=== PATIENT | male | born 1950 | race Caucasian/White ===

== ENCOUNTER 2019-10-28 08:17 | Day surgery (SDC) | payer MEDICARE ==
[2019-10-28] VITALS (8 sets, daily range): BP systolic 106–173; BP diastolic 87–133
[~2019-10-28] VITALS: Ht 175 cm; Wt 79.0 kg
[2019-10-28] MEDS ORDERED: NS IV 1000 ML 1,000 ML ONE (09:26)
[2019-10-28] MEDS ORDERED: LIDOCAINE 2% VISCOUS 15 ML UDC ONE (09:26)
[2019-10-28] MEDS ORDERED: MIDAZOLAM 5 MG/5 ML (VERSED) VIAL IV ONE ×2 (09:30→10:00)
[2019-10-28] MEDS ORDERED: fentaNYL INJECTION 100 MCG/2 ML AMP IV ONE ×2 (09:30→10:00)
[2019-10-28] MEDS ORDERED: LIDOCAINE 2% VISCOUS 15 ML UDC PO ONE ×2 (09:30→10:00)
[2019-10-28] MEDS ORDERED: NS IV 1000 ML 1,000 ML IV SCH (09:30)
[2019-10-28 09:58] LABS: HEMOGLOBIN 14.5 G/DL (13.3-17.7); MEAN PLATELET VOLUME 9.9 FL (7.4-10.4); RED CELL DISTRIBUTION WIDTH 13.5 % (10.0-14.5); WHITE BLOOD COUNT 6.3 10^3/uL (4.3-11.0)
[2019-10-28 09:59] LABS: BILIRUBIN,URINE NEGATIVE (NEGATIVE); CLARITY,URINE CLEAR; COLOR,URINE YELLOW; GLUCOSE, URINE (UA) NEGATIVE (NEGATIVE); KETONES,URINE NEGATIVE (NEGATIVE); LEUKOCYTE ESTERASE ,URINE NEGATIVE (NEGATIVE); NITRITE,URINE NEGATIVE (NEGATIVE); PH,URINE 6.5 (5-9); PROTEIN,URINE NEGATIVE (NEGATIVE)
--- NOTE | 2019-10-28 10:03 | Diagnostic Imaging Report ---
INDICATION: Preop for cardioversion, atrial fibrillation. TECHNIQUE/COMPARISON: A frontal chest was obtained at 9:56 AM with no prior study for comparison. FINDINGS: The heart and mediastinal silhouette are normal in appearance. The lungs appear clear. There is no pneumothorax or pleural fluid. IMPRESSION: No acute process in the chest. Dictated by: Dictated on workstation # [id number]
[2019-10-28] MEDS ORDERED: OMEP-280 PO (10:11)
[2019-10-28] MEDS ORDERED: APIX5TAB PO (10:11)
[2019-10-28 10:14] LABS: PROTHROMBIN TIME PATIENT 13.9 SEC (12.2-14.7)
[2019-10-28 10:16] LABS: BACTERIA,URINE TRACE /HPF; SQUAMOUS EPITHELIAL CELL,UR 0-2 /HPF; WBC,URINE 0-2 /HPF
[2019-10-28 10:26] LABS: ALANINE AMINOTRANSFERASE 18 U/L (0-55); ALBUMIN 4.4 GM/DL (3.2-4.5); ALKALINE PHOSPHATASE 58 U/L (40-136); BILIRUBIN,TOTAL 0.7 MG/DL (0.1-1.0); BUN/CREATININE RATIO 18; CALCIUM 9.9 MG/DL (8.5-10.1); CARBON DIOXIDE 27 MMOL/L (21-32); CHLORIDE 105 MMOL/L (98-107); CHOLESTEROL 234 MG/DL (< 200); CREATININE SERUM 0.97 MG/DL (0.60-1.30); GFR ESTIMATED > 60; GLUCOSE 97 MG/DL (70-105); HDL CHOLESTEROL 52 MG/DL (40-60); POTASSIUM 4.2 MMOL/L (3.6-5.0); SODIUM 139 MMOL/L (135-145); TOTAL PROTEIN 7.2 GM/DL (6.4-8.2); TRIGLYCERIDES 101 MG/DL (<150); VLDL CHOLESTEROL 20 MG/DL (5-40)
--- NOTE | 2019-10-28 10:30 | NUR ---
SPOKE WITH THE PT (HE HAD HIS MED BOTTLES) TO COMPLETE THE MED REC. THE PT HAD A BOTTLE OF LISINOPRIL 20MG- 1 TAB DAILY FILLED ON 09-14-2019 #30- WHEN I ASKED ABOUT THIS MEDICATION HE IMPLIED THAT THIS WAS THE SAME MED THAT IS IN THE OTHER STOCK MED BOTTLE, HE WAS MENTIONING THAT THEY ARE BOTH PINK TABLETS.HE HAD A BOTTLE OF ELIQUIS WITH HIM AND UPON FURTHER INVESTIGATION HE THOUGHT WHEN HE PICKED UP ELIQUIS ON 09-24-2019 PT THOUGHT HE WAS TO STOP TAKING THE LISINOPRIL. HIS WAS COMMENTING ON HIS HIGH BP LATELY AND AGREES THAT THIS IS PROBABLY WHAT HAPPENED. FOR THIS REASON I LEFT THE LISINOPRIL OFF THE MED REC- BUT PT DOES HAVE IT WITH HIM. THE FOLLOWING ARE FILL DATES: 09-14-2019 DILTIAZEM ER 180MG #30/30DS (PT SAYS HE HAS BEEN OUT FOR A COUPLE DAYS- I DID DOCUMENT THE PAST DUE FILL DATE IN THE MED REC) 09-24-2019 ELIQUIS 5MG #60/30DS PT DENIES TAKING ANY OTC MEDS
[2019-10-28] MEDS ORDERED: DILT180C85 PO (10:39)
[2019-10-28] MEDS ORDERED: fentaNYL INJECTION 100 MCG/2 ML AMP ONE (10:48)
[2019-10-28] MEDS ORDERED: proPOfol 200 MG/20 ML (DIPRIVAN) VIAL IV ONE (10:49)
[2019-10-28] MEDS ORDERED: MIDAZOLAM 5 MG/5 ML (VERSED) VIAL ONE (10:49)
[2019-10-28] MEDS ORDERED: AMIODARONE (OMNICELL DRIP KIT) 150 MG/3 ML IV ONE (11:29)
--- NOTE | 2019-10-28 11:40 | Cardiac Procedure Note-CS/ASA ---
Pre-Procedure Note Pre-Op Procedure Note H&P Reviewed The H&P was reviewed, patient examined and no changes noted. Date H&P Reviewed: Oct 28, 2019 Time H&P Reviewed: 11:40 Conscious Sedation Pre-Proced Time 11:40 ASA Score 3 For ASA 3 and 4: Consider anesthesia and medical clearance. Also, for patients with a history of failed moderate sedation consider anesthesia. Airway Lungs Heart ASA score ASA 1: a normal healthy patient ASA 2: a patient with a mild systemic disease (mid diabetes, controlled hypertension, obesity x ASA 3: a patient with a severe systemic disease that limits activity (angina, COPD, prior Myocardial infarction) ASA 4: a patient with an incapacitating disease that is a constant threat to life (CHF, renal failure) ASA 5: a moribund patient not expected to survive 24 hrs. (ruptured aneurysm) ASA 6: a declared brain- patient whose organs are being harvested. For emergent operations, add the letter E after the classification Mallampati Classification Grade 3 Sedation Plan Analgesia, Amnesia, Plan communicated to team members, Discussed options with patient/fam, Discussed risks with patient/fam The patient is an appropriate candidate to undergo the planned procedure, sedation, and anesthesia. The patient immediately re-assessed prior to indication. KERRI JACKSON MD Oct 28, 2019 11:40
--- NOTE | 2019-10-28 11:41 | Cardioversion ---
Cardioversion PROCEDURE PHYSICIAN: Kerri Farrell DATE OF PROCEDURE: 10/28/19 DIRECT EXTERNAL ELECTRICAL CARDIOVERSION: Indications: Atrial Fibrillation with rapid ventricular rate Preoperative diagnoses: Atrial Fibrillation with rapid ventricular rate Postoperative diagnosis: Sinus rhythm, Successful Electrical Cardioversion Anesthesia: By Anesthesia services Complications: None Specimen: None Contrast: 0 Flouroscopy: none Procedure Details: The patient was brought the labor relations supervisor after informed consent was taken, all the risks and complications were explained including the risk of stroke. Electrical cardioversion was carried out with anesthesia support with propofol. 200 joules of synchronized shock was delivered through external patches which promptly restored sinus rhythm. The patient tolerated the procedure well. Conclusions: successful electrical cardioversion with no complication Final Diagnosis: paroxysmal atrial fibrillation Hypertension Palpitations KERRI FARRELL MD Oct 28, 2019 11:41
[2019-10-28] MEDS ORDERED: AMIO200T4 PO (11:42)
[2019-10-28] MEDS ORDERED: AMIODARONE 200 MG (CORDARONE) TAB PO SCH (11:45)
[2019-10-28] MEDS ORDERED: APIXABAN 5 MG (ELIQUIS) TABLET PO ONE (11:45)
--- NOTE | 2019-10-28 13:53 | Anesthesia-General Post-Op ---
MAC Patient Condition Mental Status/LOC: Same as Preop Cardiovascular: Satisfactory Nausea/Vomiting: Absent Respiratory: Satisfactory Pain: Controlled Complications: Absent Post Op Complications Complications None Follow Up Care/Instructions Patient Instructions None needed. Anesthesiology Discharge Order Discharge Order Patient is doing well, no complaints, stable vital signs, no apparent adverse anesthesia problems. No complications reported per nursing. CJ WAGNER CRNA Oct 28, 2019 13:53
== END 2019-10-28 12:48 | disposition home or self-care (01) ==
LOC: CATH 08:17
PROVIDERS: ATTEND Internal Medicine Cardiovascular Disease
DX: I48.19 Other persistent atrial fibrillation (principal); I11.9 Hypertensive heart disease without heart failure; N28.9 Disorder of kidney and ureter, unspecified; Z79.01 Long term (current) use of anticoagulants; Z79.899 Other long term (current) drug therapy
CPT/HCPCS: 36415; 71045; 80053; 80061; 81000; 85027; 85610; 85730; 87081; 92960; 93005; 93312; 93320; 93325

== ENCOUNTER 2019-11-12 11:29 | Day surgery (SDC) | payer MEDICARE ==
[~2019-11-12] VITALS: Ht 175 cm; Wt 80.0 kg
[2019-11-12] VITALS (17 sets, daily range): BP systolic 127–182; BP diastolic 63–105
[~2019-11-12 11:29] MED LIST: AMIO200T4 PO; APIX5TAB PO; DILT180C85 PO; NS IV 1000 ML 1,000 ML ONE; OMEP20CA18 PO
[2019-11-12] MEDS ORDERED: NS IV 1000 ML 1,000 ML IV ONE (11:31)
[2019-11-12] MEDS ORDERED: MIDAZOLAM 5 MG/5 ML (VERSED) VIAL IV ONE (11:45)
[2019-11-12] MEDS ORDERED: MIDAZOLAM 2 MG/2 ML (VERSED) VIAL ONE ×2 (14:59→15:16)
[2019-11-12] MEDS ORDERED: proPOfol 200 MG/20 ML (DIPRIVAN) VIAL IV ONE ×2 (14:59→15:16)
[2019-11-12] MEDS ORDERED: NS IV 1000 ML 1,000 ML ONE (15:15)
--- NOTE | 2019-11-12 16:22 | NUR ---
RECEIVED FROM [facility]A CARDIOVERSION, ALERT AND ORIENTED, DENIES PAIN OR SOB, IV SITE WITHOUT REDNESS OR SWELLING, FAMILY AT BEDSIDE, CALL LIGHT WITHIN REACH, HEART RATE 64
--- NOTE | 2019-11-12 16:25 | Cardioversion ---
Cardioversion PROCEDURE PHYSICIAN: Dionne Hart MD DATE OF PROCEDURE: 11/12/19 DIRECT EXTERNAL ELECTRICAL CARDIOVERSION: Indications: Persistent atrial fibrillation. Preoperative diagnoses: Persistent atrial fibrillation. Postoperative diagnosis: Sinus rhythm, Successful Electrical Cardioversion History: This is a 69-year-old gentleman with persistent atrial fibrillation. The patient had transesophageal echocardiogram assisted cardioversion on 10/28/2019. Transesophageal echocardiogram showed no evidence of left atrial left atrial appendage thrombus. Patient was started on Eliquis and has been on uninterrupted Eliquis since the previous cardioversion attempt. Unfortunately the patient went back into atrial fibrillation. He was started on amiodarone. Anesthesia: By Anesthesia services Complications: None Specimen: None Contrast: 0 Flouroscopy: none Procedure Details: The patient was brought the cathode ray tube assembler after informed consent was taken, all the risks and complications were explained including the risk of stroke. Electrical cardioversion was carried out with anesthesia support with propofol. 200 joules of synchronized shock was delivered through external patches which promptly restored sinus rhythm. The patient tolerated the procedure well. Conclusions: 1.Successful Cardioversion. 2.Continue oral anticoagulation and rate controlling agent. 3.Follow up in office in 4-6 weeks. Dionne Hart MD, [facility] Cardiac Electrophysiology Isaac HART MD Nov 12, 2019 16:25
--- NOTE | 2019-11-12 16:43 | Anesthesia-General Post-Op ---
MAC Patient Condition Mental Status/LOC: Same as Preop Cardiovascular: Satisfactory Nausea/Vomiting: Absent Respiratory: Satisfactory Pain: Controlled Complications: Absent Post Op Complications Complications None Follow Up Care/Instructions Patient Instructions None needed. Anesthesiology Discharge Order Discharge Order Patient was seen after the procedure and he was doing well, no complaints, stable vital signs, no apparent adverse anesthesia problems. JOSSY MOTT DO Nov 12, 2019 16:43
--- NOTE | 2019-11-12 17:55 | NUR ---
bp 182/103, pulse 69, dr rogers notified of bp and orders given
[2019-11-12] MEDS ORDERED: amLODIPine 5 MG (NORVASC) TAB ONE (18:13)
[2019-11-12] MEDS ORDERED: amLODIPine 5 MG (NORVASC) TAB PO ONE (18:15)
--- NOTE | 2019-11-12 18:15 | NUR ---
NORVASC 5MG GIVEN PO INSTRUCTED
[2019-11-12] MEDS ORDERED: AMLO5TAB4 PO (18:16)
--- NOTE | 2019-11-12 18:30 | NUR ---
PRESCRIPTION FOR NORVASC 5MG CALLED TO [facility] IN [place]
--- NOTE | 2019-11-12 19:30 | NUR ---
BP 152/84, DISMISSED P[ER AMBULATORY, DENIES PAIN OR SOB, AT BEDSIDE
== END 2019-11-12 19:30 | disposition home or self-care (01) ==
LOC: CATH 11:29 → CSD 16:56 → CATH 19:30
PROVIDERS: ATTEND Internal Medicine Interventional Cardiology
DX: I48.19 Other persistent atrial fibrillation (principal); I11.9 Hypertensive heart disease without heart failure; R13.10 Dysphagia, unspecified; Z79.899 Other long term (current) drug therapy; Z79.01 Long term (current) use of anticoagulants
CPT/HCPCS: 92960; 93005

== ENCOUNTER 2019-12-10 06:53 | Outpatient (RCR) | payer MEDICARE, OTHER ==
[~2019-12-10] VITALS: Ht 175 cm; Wt 80.0 kg
[~2019-12-10 06:53] MED LIST changes: +AMLO5TAB4 PO; -NS IV 1000 ML 1,000 ML ONE
[2019-12-10] MEDS ORDERED: CATHETER FLUSH 10 ML SYR IV PRN (07:00)
[2019-12-10] MEDS ORDERED: REGADENOSON 0.4 MG/5 ML SYR (LEXISCAN) IV ONE ×2 (07:15→08:20)
[2019-12-10 08:32] VITALS: BP 154/88
--- NOTE | 2019-12-10 12:34 | Cardiology Stress Test Report ---
Stress Test Report Type of NM Stress Test: Test Type: LEXISCAN 0.4MG/5ML Date of Procedure/Referring: Date of Procedure: Dec 10, 2019 PCP Isaac Hart MD Admitting Physician No,Local Physician Indications: Persistent atrial fibrillation Baseline Heart Rate: 54 Baseline Blood Pressure: Blood Pressure Systolic: 154 Blood Pressure Diastolic: 88 Baseline EKG: Baseline EKG: sinus rhythm Summary & Conclusion: Summary: The patient was brought to the stress lab after informed consent was taken. Stress test was performed according to the Lexiscan protocol. 0.4 mg of IV Lexiscan was given. Low-grade exercise was performed. Baseline EKG showed sinus rhythm at 54 BPM. Blood pressure 143/89. Maximum heart rate 74 bpm and blood pressure 165/99 mmHg. Patient did not have any chest pain, arrhythmias or ST segment changes during the stress test. 10.99 mCi of Myoview were given for rest imaging and 32.3 mCi of Myoview given for stress imaging. Transient ischemic dilatation score 0.8 , EF 59 percent. Normal wall motion. Normal myocardial perfusion imaging during rest and stress. Conclusion: Pharmacological stress test was negative for ischemia. Normal LV function with no wall motion abnormalities. Normal myocardial perfusion imaging during rest and stress. Isaac HART MD Dec 10, 2019 12:34
== END 2020-03-09 | disposition home or self-care (01) ==
LOC: CARD 06:53
PROVIDERS: ATTEND Internal Medicine Interventional Cardiology
DX: I48.19 Other persistent atrial fibrillation (principal); I10 Essential (primary) hypertension
CPT/HCPCS: 78452; 93017; A9502

== ENCOUNTER 2020-02-05 12:35 | Outpatient (CLI) | payer MEDICARE, OTHER | END 2020-02-05 13:30 | disposition home or self-care (01) | LOC: SLEEP 12:35 | PROVIDERS: ATTEND Internal Medicine Interventional Cardiology | DX: G47.33 Obstructive sleep apnea (adult) (pediatric) (principal); I48.19 Other persistent atrial fibrillation; I11.9 Hypertensive heart disease without heart failure; Z87.448 Personal history of other diseases of urinary system; Z87.19 Personal history of other diseases of the digestive system ==

== ENCOUNTER 2020-12-12 05:41 | Outpatient (RCR) | payer MEDICARE ==
[~2020-12-12 05:41] MED LIST changes: -AMIO200T4 PO; +AMIO200T6 PO
== END 2021-03-12 | disposition home or self-care (01) ==
LOC: PREOP 05:41 → EDSTATUS 12:00
PROVIDERS: ATTEND Surgery
DX: Z01.818 Encounter for other preprocedural examination (principal)

== ENCOUNTER 2022-04-27 07:03 | Day surgery (SDC) | payer MEDICARE, OTHER ==
[~2022-04-27] VITALS: Ht 175.3 cm; Wt 80.4 kg
[2022-04-27] VITALS (7 sets, daily range): BP systolic 133–157; BP diastolic 82–110
[~2022-04-27 07:03] MED LIST changes: -AMIO200T6 PO; +AMIO200T65 PO
[2022-04-27] MEDS ORDERED: NS IV 1000 ML 1,000 ML IV SCH (07:15)
[2022-04-27] MEDS ORDERED: NS IV 1000 ML 1,000 ML ONE (07:16)
[2022-04-27 07:45] LABS: HEMATOCRIT 43 % (40-54); HEMOGLOBIN 14.4 g/dL (13.3-17.7); MEAN CORPUSCULAR HEMOGLOBIN 31 pg (25-34); MEAN CORPUSCULAR HGB CONC 34 g/dL (32-36); MEAN CORPUSCULAR VOLUME 91 fL (80-99); PLATELET COUNT 260 10^3/uL (130-400); WHITE BLOOD COUNT 7.3 10^3/uL (4.3-11.0)
[2022-04-27 07:57] LABS: INR 1.1 (0.8-1.4); PROTHROMBIN TIME PATIENT 14.4 SEC (12.2-14.7)
[2022-04-27] MEDS ORDERED: FLEC50TA PO (07:59)
[2022-04-27] MEDS ORDERED: proPOfol 200 MG/20 ML (DIPRIVAN) VIAL IV ONE (08:00)
[2022-04-27 08:07] LABS: ALBUMIN 4.2 GM/DL (3.2-4.5); BILIRUBIN,TOTAL 0.7 MG/DL (0.1-1.0); CALCIUM 9.6 MG/DL (8.5-10.1); CREATININE SERUM 1.1 MG/DL (0.60-1.30); POTASSIUM 3.9 MMOL/L (3.6-5.0); TOTAL PROTEIN 6.9 GM/DL (6.4-8.2)
--- NOTE | 2022-04-27 08:09 | Diagnostic Imaging Report ---
INDICATION: Atrial fibrillation. TECHNIQUE: Single view chest 7:18 AM. CORRELATION STUDY: 10/28/2019 FINDINGS: The heart size, mediastinal configuration and pulmonary vascularity are within normal limits. The lungs are clear with no consolidating infiltrate. Mild elevated right diaphragm. There is no significant effusion or pneumothorax. IMPRESSION: 1. Negative appearing single view chest. Dictated by: Dictated on workstation # [id number]
--- NOTE | 2022-04-27 08:55 | Cardiac Procedure Note-CS/ASA ---
Pre-Procedure Note Pre-Op Procedure Note Date of Available H&P: Apr 26, 2022 Date H&P Reviewed: Apr 27, 2022 Time H&P Reviewed: 08:54 History & Physical: H&P Reviewed, Patient Examed, No changes noted Pre-Operative Diagnosis: A flutter Conscious Sedation Pre-Proced Time 08:55 ASA Score 3 For ASA 3 and 4: Consider anesthesia and medical clearance. Also, for patients with a history of failed moderate sedation consider anesthesia. Airway Lungs Heart ASA score ASA 1: a normal healthy patient ASA 2: a patient with a mild systemic disease (mid diabetes, controlled hypertension, obesity x ASA 3: a patient with a severe systemic disease that limits activity (angina, COPD, prior Myocardial infarction) ASA 4: a patient with an incapacitating disease that is a constant threat to life (CHF, renal failure) ASA 5: a moribund patient not expected to survive 24 hrs. (ruptured aneurysm) ASA 6: a declared brain- patient whose organs are being harvested. For emergent operations, add the letter E after the classification Mallampati Classification Grade 3 Sedation Plan Analgesia, Amnesia, Plan communicated to team members, Discussed options with patient/fam, Discussed risks with patient/fam The patient is an appropriate candidate to undergo the planned procedure, sedation, and anesthesia. The patient immediately re-assessed prior to indication. KERRI JACKSON MD Apr 27, 2022 08:55
[2022-04-27] MEDS ORDERED: FLEC100T PO (09:12)
--- NOTE | 2022-04-27 09:12 | Discharge Inst-Post CATH ---
Discharge Inst-CATH/EP Problems Reviewed?: Yes Post Cardiac Cath/EP D/C Inst Follow Up/Plan Appointment with Dr. Farrell's office in 1 to 2 weeks <b>CARDIAC CATH/EP PROCEDURE DISCHARGE INSTRUCTIONS</b> ACTIVITY * Go Home directly and rest. * Limit activity of the leg (or wrist if it was used) for 7 days including aer obics, swimming, jogging, bicycling, etc. * Restrict stair-climbing for 7 days if possible, if not, climb up with your non-cath leg, then bring together on the same step. * Avoid lifting, pushing, pulling or excessive movement of the affected extremi ty for 7 days. * Customary sexual activity may be resumed after 2 days-use caution not to use a position that strains or causes pain to the affected extremity. * No driving for 24 hours. * NO SMOKING. * Avoid straining for bowel movements for 7 days. * Gentle walking on level ground is allowed. * Returning to work will depend on the type of procedure and the results. Your doctor will discuss this with you. CALL YOUR DOCTOR FOR ANY OF THE FOLLOWING: *If bleeding from the puncture site occurs- Apply gentle pressure to site with clean cloth and call your doctor or EMS. * If a knot or lump forms under the skin, increases in size, or causes pain. * If bruising appears to be worsening or moving further down your leg instead of disappearing. * Temperature above 101 F. CARE OF YOUR GROIN INCISION; * Bruising or purple discoloration of the skin near the puncture site is common. * You may shower only, no bathtub bathing for 5 days. Be careful to avoid slipping as your leg may feel stiff. * If a closure device was used on your femoral artery, please see the attached guide regarding care of the device and your leg. * Leave dressing on FOR 24 hours. CARE OF YOUR WRIST INCISION; * Bruising or purple discoloration of the skin near the puncture site is common. * You may shower. * DO NOT submerge wrist. * Leave dressing on FOR 24 hours. KERRI FARRELL MD Apr 27, 2022 09:12
--- NOTE | 2022-04-27 09:13 | Cardioversion ---
Cardioversion PROCEDURE PHYSICIAN: Kerri Farrell DATE OF PROCEDURE: 04/27/22 DIRECT EXTERNAL ELECTRICAL CARDIOVERSION: Indications: Atrial Fibrillation with rapid ventricular rate Preoperative diagnoses: Atrial Fibrillation with rapid ventricular rate Postoperative diagnosis: Sinus rhythm, Successful Electrical Cardioversion Anesthesia: By Anesthesia services Complications: None Specimen: None Contrast: 0 Flouroscopy: none Procedure Details: The patient was brought the laborer general after informed consent was taken, all the risks and complications were explained including the risk of stroke. Electrical cardioversion was carried out with anesthesia support with propofol. 200 joules of synchronized shock was delivered through external patches which promptly restored sinus rhythm. The patient tolerated the procedure well. Conclusions: Successful electrical cardioversion in terminating atrial fibrillation Final Diagnosis: Paroxysmal atrial fibrillation Palpitation Hypertension Hyperlipidemia KERRI FARRELL MD Apr 27, 2022 09:13
== END 2022-04-27 10:33 | disposition home or self-care (01) ==
LOC: SDC 07:03
PROVIDERS: ATTEND Internal Medicine Cardiovascular Disease
DX: I48.0 Paroxysmal atrial fibrillation (principal); I10 Essential (primary) hypertension; E78.5 Hyperlipidemia, unspecified
CPT/HCPCS: 36415; 71045; 80053; 80061; 85027; 85610; 85730; 87081; 92960; 93005

== ENCOUNTER → 2022-05-07 | Outpatient (CLI) | payer MEDICARE ==
[~2022-05-07] VITALS: Ht 175 cm; Wt 81.0 kg
[~2022-05-07] MED LIST changes: +CATHETER FLUSH 10 ML SYR IVP PRN; +FLEC100T PO; +FLEC50TA PO; +REGADENOSON 0.4 MG/5 ML SYR (LEXISCAN) IV ONE
[2022-05-07 09:07] VITALS: BP 168/89
--- NOTE | 2022-05-07 11:48 | Cardiology Stress Test Report ---
Stress Test Report Date of Procedure/Referring: Date of Procedure: May 07, 2022 PCP No,Local Physician Admitting Physician Admitting Physician: Attending Physician: Adriane Amor Indications: HTN Baseline Heart Rate: 51 Baseline Blood Pressure: Blood Pressure Systolic: 168 Blood Pressure Diastolic: 89 Baseline Vitals Vital Signs Date Time Temp Pulse Resp B/P (MAP) Pulse Ox O2 Delivery O2 Flow Rate FiO2 05/07/22 09:07 54 168/89 (115) 99 Baseline EKG: Baseline EKG: NSR Summary After explaining the procedure to the patient, he signed a consent and then brought to the stress nuclear laboratory. Patient received 0.4 mg Lexiscan for stress test, ECG, heart rate and blood pressure were monitored continuously. Resting and stress dose of radio tracer were injected, imaging was acquired and reviewed in short axis, horizontal long axis and vertical long axis views. TID: 0.82 SSS: 0 SDS: 0 EF: 61 1. Patient was scheduled for an exercise stress test, he was unable to exercise beyond 5 minutes and 30 seconds on standard Jorge Luis protocol, did not achieve target heart rate, test was converted to Lexiscan Myoview stress test. 2. Patient tolerated Lexiscan well 3. No significant ischemia or infarction on SPECT images 4. Normal left ventricular size, ejection fraction 61% KERRI JACKSON MD May 07, 2022 11:48
--- NOTE | 2022-05-09 08:58 | Anesthesia-General Post-Op ---
MAC Significant Intra-Op Events Notes late entry from 04-27-22 at 0945 Post Op Complications Complications None Follow Up Care/Instructions Patient Instructions None needed. Anesthesiology Discharge Order Discharge Order Patient is doing well, no complaints, stable vital signs, no apparent adverse anesthesia problems. No complications reported per nursing. CELESTINO VIVAR CRNA May 09, 2022 08:58
== END ==
LOC: CARD 07:45
PROVIDERS: ATTEND Physician Assistant
DX: I10 Essential (primary) hypertension (principal)
CPT/HCPCS: 78452; 93017; A9502

== ENCOUNTER 2022-11-21 10:04 | Day surgery (SDC) | payer MEDICARE, OTHER ==
[~2022-11-21] VITALS: Ht 175.3 cm; Wt 81.5 kg
[~2022-11-21 10:04] MED LIST changes: -CATHETER FLUSH 10 ML SYR IVP PRN; -REGADENOSON 0.4 MG/5 ML SYR (LEXISCAN) IV ONE
[2022-11-21] MEDS ORDERED: LIDOCAINE 1% INJ 20 ML VIAL ONE (10:15)
[2022-11-21] MEDS ORDERED: LIDOCAINE 1% INJ 20 ML VIAL INJ ONE (10:15)
[2022-11-21 10:26] VITALS: BP 147/87
[2022-11-21] MEDS ORDERED: ATOR10TA66 PO (10:31)
[2022-11-21] MEDS ORDERED: DILT180C84 PO (10:31)
[2022-11-21] MEDS ORDERED: FLEC100T PO (10:31)
--- NOTE | 2022-11-21 11:49 | Implantation of Loop Monitor ---
Implant of Loop Monitior IMPLANTATION OF LOOP MONITOR REPORT DATE OF PROCEDURE: 11/21/22 PREOP DIAGNOSIS: Paroxysmal atrial fibrillation POSTOP DIAGNOSIS: Paroxysmal atrial fibrillation PROCEDURE DETAILS: The patient is a 72 male with history of paroxysmal atrial fibrillation requiring long-term surveillance. Therefore implantable loop recorder was discussed and agreed with the patient. Informed consent was taken. All risks and complications were discussed at length. The patient was draped and prepped in the usual sterile fashion. Local anesthesia was lidocaine, which was given in the substernal area close to the 4th intercostal space. Loop monitor [employer] with serial number [id number] was implanted according to the protocol. Steri- Strips were placed at the end of the procedure. There were no complications and the patient tolerated the procedure well. The device was interrogated with a voltage of. ANESTHESIA: Local anesthesia with lidocaine. COMPLICATIONS: None CONTRAST/FLUOROSCOPY: None CONCLUSION: Successful implantation of loop monitor with no complication FINAL DIAGNOSIS: Paroxysmal atrial fibrillation Palpitation Hypertension KERRI JACKSON MD Nov 21, 2022 11:49
== END 2022-11-21 11:23 | disposition home or self-care (01) ==
LOC: CATH 10:04
PROVIDERS: ATTEND Internal Medicine Cardiovascular Disease
DX: I48.0 Paroxysmal atrial fibrillation (principal); I48.19 Other persistent atrial fibrillation; I10 Essential (primary) hypertension; E78.2 Mixed hyperlipidemia; I65.23 Occlusion and stenosis of bilateral carotid arteries; Z79.01 Long term (current) use of anticoagulants; Z79.02 Long term (current) use of antithrombotics/antiplatelets; Z87.891 Personal history of nicotine dependence; Z79.899 Other long term (current) drug therapy
CPT/HCPCS: 33285; C1764